=== PATIENT | female | born 1945 | race Caucasian/White ===

== ENCOUNTER 2018-07-07 11:10 | Emergency (ER) | payer MEDICARE ==
[2018-07-07] MEDS ORDERED: Fluorescein Opthalmic Strip ONE (12:13)
[2018-07-07] MEDS ORDERED: Proparacaine 0.5% Opth 15 ML BOT ONE (12:13)
== END 2018-07-07 13:56 | disposition home or self-care (01) ==
LOC: ERS 11:10
DX: H20.9 Unspecified iridocyclitis (principal)
CPT/HCPCS: 99283